=== PATIENT | male | born 1995 | race Caucasian/White ===

== ENCOUNTER → 2021-11-10 | Outpatient (REF) ==
--- NOTE | 2021-11-10 09:21 | Diagnostic Imaging Report ---
INDICATION: Right hand injury. Time of Exam: 9:12 AM The metacarpals are intact. There is a significantly comminuted fracture of the proximal phalanx of the thumb. No definite intra-articular extension is seen. No significant displacement or angulation is seen. Distal phalanges are intact. Carpus is unremarkable. IMPRESSION: Comminuted proximal phalangeal fracture of the thumb. No other abnormality is seen. Dictated by: Dictated on workstation # [id number]
== END ==
LOC: OCC 09:04
PROVIDERS: ATTEND Nurse Practitioner Family
DX: S62.511A Displaced fracture of proximal phalanx of right thumb, initial encounter for closed fracture (principal); X58.XXXA Exposure to other specified factors, initial encounter
CPT/HCPCS: 73130

== ENCOUNTER 2021-11-22 17:18 | Emergency (ER) | payer OTHER ==
[~2021-11-22] VITALS: Ht 68 cm; Wt 70.0 kg
[2021-11-22 17:30] VITALS: BP 136/81
--- NOTE | 2021-11-22 18:06 | ED Upper Extremity ---
General Chief Complaint: Upper Extremity Stated Complaint: PAIN IN RIGHT HAND Nursing Triage Note: pt. reports rt. hand injury 2 weeks ago. dx w/ fx upon x-ray. follow by Occup. [facility]. pt has not followed up w/ ortho. here for increased pain History of Present Illness Date Seen by Provider: Nov 22, 2021 Time Seen by Provider: 17:50 Initial Comments 26-year-old male presents for injury to his right hand. He reports having it crushed in a machine at work approximately 2 weeks ago. He was seen at occupational health at this facility and was told he would be referred to a specialist. He has not received any referral. He has been wearing a splint at all times. He has taken antibiotics and had a tetanus vaccine at the time of the injury for her superficial abrasions to his hand. He has been taking Tylenol for pain but with continued symptoms. He tried to see his primary care provider to be referred to a specialist with no success. Severity: mild Pain/Injury Location: right thumb Method of Injury: other (crush injury at work 2 weeks ago) Allergies and Home Medications Allergies Coded Allergies: No Known Drug Allergies (Unverified , 11/22/21) Patient Home Medication List Home Medication List Reviewed: Yes Tramadol HCl (Tramadol HCl) 50 Mg Tablet, 50 MG PO Q6H PRN for PAIN Prescribed by: LETHA LUIS on 11/22/21 980 Review of Systems Constitutional: no symptoms reported, see HPI Musculoskeletal: see HPI, joint pain (right hand, thumb) All Other Systems Reviewed Negative Unless Noted: Yes Past Fcdrvjy-Qadjvj-Debimd Hx Patient Social History Smoking Status: Current Everyday Smoker Smokeless Tobacco Frequency: Current Everyday User Substance use?: No Alcohol Use?: Yes Alcohol Frequency: Once in a while Family Medical History Reviewed Nursing Family Hx Physical Exam Vital Signs Vital Signs - First Documented 11/22/21 17:30 Temp 35.5 Pulse 99 B/P (MAP) 136/81 (99) Pulse Ox 97 Capillary Refill : Less Than 3 Seconds Height, Weight, BMI Height: '" Weight: lbs. oz. kg; 151.00 BMI Method: General Appearance: WD/WN, no apparent distress Cardiovascular: normal peripheral pulses, regular rate, rhythm Respiratory: chest non-tender, lungs clear Wrist: Yes normal inspection, Yes non-tender, Yes no evidence of injury Hand: Right, abrasions (Healing with no erythema, warmth, or drainage.), bone tenderness, limited ROM (Thumb), soft tissue tenderness Neurologic/Psychiatric: no motor/sensory deficits, alert, normal mood/affect, oriented x 3 Skin: normal color, warm/dry Progress/Results/Core Measures Results/Orders My Orders Orders - LETHA LUIS Finger(S) (11/22/21 18:00) Vital Signs/I&O 11/22/21 17:30 Temp 35.5 Pulse 99 B/P (MAP) 136/81 (99) Pulse Ox 97 Blood Pressure Mean: 99 Diagnostic Imaging Diagonstic Imaging: Xray Plain Films/CT/US/NM/MRI: hand Comments NAME: KIRSTIN OLIVA [facility] REC#: [id number] PT STATUS: REG ER : 1995 PHYSICIAN: LETHA LUIS ADMIT DATE: 11/22/21/ER Draft Date of Exam:11/22/21 FINGER(S) INDICATION: Right hand injury two weeks ago with increasing pain. TIME OF EXAM: 06:17 p.m. COMPARISON: Correlation is made with prior radiograph from 11/10/2021. FINDINGS: Comminuted fracture of the proximal phalanx of the thumb is again noted. This appears very similar to prior study. Fracture alignment is fairly stable, although the more distal dominant fracture fragment does show some slight dorsal angulation. No intra-articular extension is seen. Distal phalanx of the thumb is intact. First metacarpal is intact. IMPRESSION: Comminuted proximal phalangeal fracture of the thumb, as described. Dictated on workstation # [id number] Dict: 11/22/21 1819 Trans: 11/22/21 1824 [id number] Interpreted by: CHRISTIN ESPARZA MD Electronically signed by: Reviewed: Reviewed by Me Departure Impression Primary Impression: Fracture of phalanx of right thumb Qualified Codes: S62.511A - Displaced fracture of proximal phalanx of right thumb, initial encounter for closed fracture Additional Impression: Crush fracture Disposition: 01 HOME, SELF-CARE Condition: Improved Departure-Patient Inst. Decision time for Depature: 18:20 Referrals: ESTELA ROSS APRN (PCP/Family) Primary Care Physician Patient Instructions: Hand Fracture (DC) Add. Discharge Instructions: Call Occupational Health tomorrow, to see about referral. Follow up with your insurance company, for referral to orthopedics. When you know who you are seeing, call [facility] and ask to have your x-rays clouded to that site. Alternate between Tylenol 650 mg and Ibuprofen 600 mg every 4 hours. Ice and elevate right thumb. Return to the Emergency Dept for new, urgent health care needs. All discharge instructions reviewed with patient and/or family. Voiced understanding. Scripts Tramadol HCl (Tramadol HCl) 50 Mg Tablet 50 MG PO Q6H PRN for PAIN, #20 TAB 0 Refills Prov: LETHA LUIS 11/22/21 LETHA LUIS Nov 22, 2021 18:06
--- NOTE | 2021-11-22 18:24 | Diagnostic Imaging Report ---
INDICATION: Right hand injury two weeks ago with increasing pain. TIME OF EXAM: 06:17 p.m. COMPARISON: Correlation is made with prior radiograph from 11/10/2021. FINDINGS: Comminuted fracture of the proximal phalanx of the thumb is again noted. This appears very similar to prior study. Fracture alignment is fairly stable, although the more distal dominant fracture fragment does show some slight dorsal angulation. No intra-articular extension is seen. Distal phalanx of the thumb is intact. First metacarpal is intact. IMPRESSION: Comminuted proximal phalangeal fracture of the thumb, as described. Dictated by: Dictated on workstation # [id number]
[2021-11-22] MEDS ORDERED: TRM50T PO ×2 (18:37→18:55)
== END 2021-11-22 18:41 | disposition home or self-care (01) ==
LOC: EDUNIT# 17:18 → ER 17:27
DX: S62.511A Displaced fracture of proximal phalanx of right thumb, initial encounter for closed fracture (principal); F17.200 Nicotine dependence, unspecified, uncomplicated; W23.1XXA Caught, crushed, jammed, or pinched between stationary objects, initial encounter; Y92.59 Other trade areas as the place of occurrence of the external cause; Y99.0 Civilian activity done for income or pay
CPT/HCPCS: 73140; 99281

== ENCOUNTER 2022-07-07 16:44 | Emergency (ER) | payer SELFPAY ==
[~2022-07-07] VITALS: Ht 172.7 cm; Wt 73.5 kg
[~2022-07-07 16:44] MED LIST: TRM50T PO
[2022-07-07 17:00] VITALS: BP 177/78
[2022-07-07] MEDS ORDERED: ORPHENADRINE 60 MG/2 ML (NORFLEX) AMP (ED ONLY) IM ONE (18:00)
[2022-07-07] MEDS ORDERED: KETOROLAC 60 MG/2 ML VIAL IM ONE (18:00)
[2022-07-07] MEDS ORDERED: diphenhydrAMINE 50 MG/ML INJ (BENADRYL) IM ONE (18:00)
[2022-07-07] MEDS ORDERED: MELO15TA39 PO (18:02)
[2022-07-07] MEDS ORDERED: CYCL10TA25 PO (18:02)
--- NOTE | 2022-07-07 18:02 | ED Back Pain ---
General Chief Complaint: Back Problems Stated Complaint: BACK PAIN Nursing Triage Note: PT AMB TO FT 1 W C/O MID/LOWER BACK PAIN THAT RADIATES TO BLE X2-3 DAYS. PT REPORTS HE HAS MILD DDD, WENT TO ROLL OFF COUCH A FEW DAYS AGO AND BELIEVES THIS IS WHEN PAIN STARTED. PT A&OX4. Source of Information: Patient History of Present Illness Date Seen by Provider: Jul 07, 2022 Time Seen by Provider: 17:54 Initial Comments PT ARRIVES VIA POV FROM HOME C/O LOW BACK PAIN, RADIATING DOWN THE BACK OF LEFT LEG X 3 DAYS NO INJURY--STATES HE ROLLED OVER IN BED AND BEGAN HAVING PAIN PT IS UNEMPLOYED. DENIES ANY HEAVY LIFTING OR UNUSUAL ACTIVITY, OR TRAUMA HAS OCCASIONAL TINGLING DOWN THE BACK OF HIS LEFT LEG NO URINARY SYMPTOMS NO NAUSEA/VOMITING NO RELIEF WITH IBUPROFEN X 1 DOSE, JUST PRIOR TO ARRIVAL PT STATES HE HAS HAD "CHRONIC BACK PAIN" AND HAS "DEGENERATIVE DISC DISEASE" HE HAS NOT SOUGHT CARE UNTIL TODAY FOR THIS PROBLEM SYMPTOMS NO DIFFERENT TODAY. Other Comments PCP: [facility] Allergies and Home Medications Allergies Coded Allergies: No Known Drug Allergies (Unverified , 11/22/21) Patient Home Medication List Cyclobenzaprine HCl (Cyclobenzaprine HCl) 10 Mg Tablet, 10 MG PO Q8H PRN for SPASMS Prescribed by: ZEE WAGNER on 07/07/221801 Meloxicam (Meloxicam) 15 Mg Tablet, 15 MG PO DAILY Prescribed by: ZEE WAGNER on 07/07/221801 Tramadol HCl (Tramadol HCl) 50 Mg Tablet, 50 MG PO Q6H PRN for PAIN Prescribed by: LETHA LUIS on 11/22/21 1855 Review of Systems Constitutional: no symptoms reported Respiratory: no symptoms reported Cardiovascular: no symptoms reported Gastrointestinal: no symptoms reported Genitourinary: no symptoms reported Musculoskeletal: see HPI Skin: no symptoms reported Psychiatric/Neurological: See HPI Past Ixnnhvb-Nptahg-Xpdmle Hx Patient Social History Tobacco Use?: Yes Tobacco type used: Cigarettes Smoking Status: Current Everyday Smoker Use of E-Cig and/or Vaping dev: No Substance use?: No Alcohol Use?: Yes Alcohol Frequency: Once in a while Immunizations Up To Date Influenza Vaccine Up-to-Date: No; Not Current First/Initial COVID19 Vaccinat: NONE Second COVID19 Vaccination Tyshawn: NONE Third COVID19 Vaccination Date: NONE COVID19 Vaccine Residency Program Coordinator: NONE Past Medical History Surgery/Hospitalization HX: MILD DDD Surgeries: Yes Orthopedic, Testicular Respiratory: No Cardiac: No Neurological: Yes (SKULL FRACTURE) Concussion Reproductive Disorders: Yes (SURGERY FOR UNDESCENDED TESTICLES) Genitourinary: No Gastrointestinal: No Musculoskeletal: Yes (RIGHT KNEE SURGERY) Degenerate Disk Disease, Chronic Back Pain HEENT: No Cancer: No Psychosocial: No Integumentary: No Blood Disorders: No Family Medical History SOCIAL HISTORY: -SMOKES 1 PPD -ETOH--OCCASIONAL USE -DRUGS--DENIES USE PAST SURGICAL HISTORY: -RIGHT KNEE SURGERY -SURGERY FOR BILATERAL UNDESCENDED TESTICLES Physical Exam Vital Signs Vital Signs - First Documented 07/07/22 17:00 Temp 36.8 Pulse 99 Resp 20 B/P (MAP) 177/78 (111) Pulse Ox 97 O2 Delivery Room Air Capillary Refill : Less Than 3 Seconds Height, Weight, BMI Height: '" Weight: lbs. oz. kg; 24.00 BMI Method: General Appearance: WD/WN, Anxious, Other (DRAMATIC. ) Neck: Normal Inspection Cardiovascular: Regular Rate, Rhythm Respiratory: Normal Breath Sounds Peripheral Pulses: 2+ Dorsalis Pedis (R), 2+ Left Dors-Pedis (L) Gastrointestinal: Non Tender Back: Other (DIFFUSE LOWER BACK PAIN, BILATERAL S.I. JOINT TENDERNESS. + STRAIGHT LEG RAISING ON LEFT. DTR'S +2/4 BILATERALLY. 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 Norm as Tested Skin: Normal Color, Warm/Dry; No Rash Progress/Results/Core Measures Results/Orders My Orders Orders - ZEE WAGNER DO Ketorolac Injection (Toradol Injection) (07/07/22 18:00) Orphenadrine Inj (Ed Only) (Norflex Inje (07/07/22 18:00) Diphenhydramine Injection (Benadryl Inje (07/07/22 18:00) Vital Signs/I&O 07/07/22 17:00 Temp 36.8 Pulse 99 Resp 20 B/P (MAP) 177/78 (111) Pulse Ox 97 O2 Delivery Room Air Blood Pressure Mean: 111 Progress Progress Note : Progress Note GIVEN: TORADOL NORFLEX BENADRYL DISCUSSED ANTICIPATED COURSE, MEDICATIONS, SYMPTOMATIC TREATMENT, NEED FOR FOLLOW UP AND RETURN PRECAUTIONS. REVIEWED OLD RECORDS, PT'S ONLY ER VISIT WAS 11/2021 FOR FINGER INJURY Departure Impression Primary Impression: Low back pain with left-sided sciatica Disposition: HOME, SELF-CARE Condition: Stable Departure-Patient Inst. Decision time for Depature: 18:01 Referrals: ESTELA ROSS APRN (PCP/Family) Primary Care Physician Patient Instructions: Low Back Pain ED, Sciatica ED Add. Discharge Instructions: ALTERNATE ICE AND HEAT TO SORE AREA AT 20 MINUTE INTERVALS FOLLOW UP WITH [facility] IN 2-3 DAYS FOR FURTHER CARE--CALL IN THE MORNING TO SCHEDULE AN APPOINTMENT All discharge instructions reviewed with patient and/or family. Voiced understanding. Scripts Cyclobenzaprine HCl (Cyclobenzaprine HCl) 10 Mg Tablet 10 MG PO Q8H PRN for SPASMS, #15 TAB 0 Refills Prov: ZEE WAGNER DO 07/07/22 Meloxicam (Meloxicam) 15 Mg Tablet 15 MG PO DAILY, #10 TAB Prov: ZEE WAGNER DO 07/07/22 ZEE WAGNER DO Jul 07, 2022 18:02
== END 2022-07-07 18:30 | disposition home or self-care (01) ==
LOC: EDUNIT# 16:44 → ER 16:46
DX: M54.42 Lumbago with sciatica, left side (principal); F17.210 Nicotine dependence, cigarettes, uncomplicated; Z28.310 Unvaccinated for COVID-19
CPT/HCPCS: 99284

== ENCOUNTER 2023-03-27 20:09 | Emergency (ER) | payer SELFPAY ==
[~2023-03-27] VITALS: Ht 170.1 cm; Wt 70.3 kg
[~2023-03-27 20:09] MED LIST changes: +CYCL10TA25 PO; +MELO15TA39 PO
--- NOTE | 2023-03-27 20:32 | ED General ---
General Chief Complaint: General Problems/Pain Stated Complaint: MIGRANES, COLD/HOT FLASHES, VOMITING Nursing Triage Note: PT AMB TO RM 10 WITH CC OF HOT/COLD FLASHES, VOMITING, LH, AND DIARRHEA SINCE 03/23. PT UNK FEVER. PT STATES "I MIGHT HAVE COVID OR SOMETHING." Source of Information: Patient Exam Limitations: No Limitations History of Present Illness Date Seen by Provider: Mar 27, 2023 Time Seen by Provider: 20:29 Initial Comments Patient is a 27-year-old male with a history of smoking presents ED for flulike symptoms. Symptoms started this past Sunday. Reports hot and cold flashes, vomiting twice, diarrhea loose stool mild cough with some chest discomfort with a cough. Patient states he feels weak and fatigue with generalized body pains. Has been taking ibuprofen with some improvement. States he missed work the past couple days secondary to his symptoms. Denies being exposed to COVID or anybody else that has been sick. Denies taking any other medication. Denies of any known medical problems. Reports some intermittent wheezing but does smoke. Patient denies of any current chest pain, abdominal pain. Does not report head pressure. Denies any visual changes, unilateral muscle weakness or sensory changes, neck pain, known fever. Denies of any known medical problems. Denies rash, sore throat or ear pain Allergies and Home Medications Allergies Coded Allergies: No Known Drug Allergies (Unverified , 11/22/21) Patient Home Medication List Home Medication List Reviewed: Yes Albuterol Sulfate (Ventolin Hfa) 1 Puff Puff, 2 PUFF INH Q4H Prescribed by: SHADY BRIONES on 03/27/232127 Cyclobenzaprine HCl (Cyclobenzaprine HCl) 10 Mg Tablet, 10 MG PO Q8H PRN for SPASMS Prescribed by: ZEE WAGNER on 07/07/221801 Meloxicam (Meloxicam) 15 Mg Tablet, 15 MG PO DAILY Prescribed by: ZEE WAGNER on 07/07/221801 Tramadol HCl (Tramadol HCl) 50 Mg Tablet, 50 MG PO Q6H PRN for PAIN Prescribed by: LETHA LUIS on 11/22/21 185 Review of Systems Review of Systems Constitutional: chills; No fever; malaise, weakness EENTM: No ear pain, No blurred vision, No double vision Respiratory: cough; No dyspnea on exertion Cardiovascular: No chest pain Gastrointestinal: No abdominal pain; diarrhea, nausea, vomiting Genitourinary: No decreased output, No discharge Musculoskeletal: No back pain, No joint pain Skin: No change in color, No change in hair/nails All Other Systems Reviewed Negative Unless Noted: Yes Past Mxqygzy-Kyhlyg-Aupqbh Hx Patient Social History Tobacco Use?: Yes Tobacco type used: Cigarettes Smoking Status: Current Everyday Smoker Substance use?: Yes Substance type: Marijuana Substance frequency: Daily Alcohol Use?: No Immunizations Up To Date First/Initial COVID19 Vaccinat: NONE Second COVID19 Vaccination Tyshawn: NONE Third COVID19 Vaccination Date: NONE Past Medical History Surgery/Hospitalization HX: MILD DDD Surgeries: Yes Orthopedic, Testicular Respiratory: No Cardiac: No Neurological: Yes (SKULL FRACTURE) Concussion Reproductive Disorders: Yes (SURGERY FOR UNDESCENDED TESTICLES) Genitourinary: No Gastrointestinal: No Musculoskeletal: Yes (RIGHT KNEE SURGERY) Degenerate Disk Disease, Chronic Back Pain HEENT: No Cancer: No Psychosocial: No Integumentary: No Blood Disorders: No Family Medical History SOCIAL HISTORY: -SMOKES 1 PPD -ETOH--OCCASIONAL USE -DRUGS--DENIES USE PAST SURGICAL HISTORY: -RIGHT KNEE SURGERY -SURGERY FOR BILATERAL UNDESCENDED TESTICLES Physical Exam Vital Signs Vital Signs - First Documented 03/27/23 20:18 Temp 37.1 Pulse 101 Resp 16 B/P (MAP) 155/97 (116) Pulse Ox 95 O2 Delivery Room Air Capillary Refill : Less Than 3 Seconds Height, Weight, BMI Height: '" Weight: lbs. oz. kg; 24.00 BMI Method: General Appearance: No Apparent Distress, WD/WN Eyes: Bilateral Eye Normal Inspection, Bilateral Eye PERRL, Bilateral Eye EOMI HEENT: PERRL/EOMI, TMs Normal, Normal ENT Inspection, Pharynx Normal Neck: Full Range of Motion, Normal Inspection, Non Tender, Supple Respiratory: Chest Non Tender, Lungs Clear, Normal Breath Sounds, No Accessory Muscle Use, No Respiratory Distress Cardiovascular: Regular Rate, Rhythm, No Edema, No Gallop, No JVD, No Murmur Gastrointestinal: Normal Bowel Sounds, No Organomegaly, No Pulsatile Mass, Non Tender Extremity: Normal Capillary Refill, Normal Inspection, Normal Range of Motion, Non Tender, No Calf Tenderness Neurologic/Psychiatric: Alert, Oriented x3, No Motor/Sensory Deficits, Normal 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, 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 Norm as Tested Skin: Normal Color, Warm/Dry Progress/Results/Core Measures Suspected Sepsis SIRS Temperature: Pulse: 101 Respiratory Rate: 16 Blood Pressure 155 /97 Mean: 116 Results/Orders Lab Results Laboratory Tests Test 03/27/23 20:36 Range/Units Influenza Type A (RT-PCR) Not Detected Not Detecte Influenza Type B (RT-PCR) Not Detected Not Detecte SARS-CoV-2 RNA (RT-PCR) Not Detected Not Detecte My Orders Orders - JAYY MENDEZ Covid 19 Inhouse Test (03/27/23 20:23) Influenza A And B By Pcr (03/27/23 20:23) Chest 1 View, Ap/Pa Only (03/27/23 20:29) Vital Signs/I&O 03/27/23 03/27/23 20:18 21:33 Temp 37.1 Pulse 101 101 Resp 16 16 B/P (MAP) 155/97 (116) 131/82 Pulse Ox 95 95 O2 Delivery Room Air Room Air Capillary Refill : Less Than 3 Seconds Blood Pressure Mean: 116 Departure Communication (PCP) Differential diagnosis viral syndrome, pneumonia. Patient appears in no acute respiratory distress. Vital signs stable. Flulike symptoms since Sunday. COVID influenza was ordered. Did have some subtle wheezing. History of smoking. Denies feeling any short of breath or current chest pain. Tolerating p.o. fluids. X-ray was obtained which did not note any acute abnormality. COVID influenza were negative. Suspect that this is more viral in nature. Patient was requesting a work note which was provided. At this time recommend alternating Tylenol ibuprofen. Bwxf-hky-hvrikue conservative measures to help with symptoms relieve. If any worsening symptoms such as chest pain or shortness of breath return back to ED. Vital signs are stable. Clinically does not appear to be cardiac. Impression Primary Impression: Viral syndrome Disposition: 01 HOME, SELF-CARE Condition: Stable Departure-Patient Inst. Decision time for Depature: 21:27 Referrals: SETELA ROSS APRN (PCP/Family) Primary Care Physician Patient Instructions: Viral Syndrome (DC) Add. Discharge Instructions: Recommend alternating Tylenol ibuprofen. Recommend hydration. Provided work note for a few days. Any worsening symptoms return back to ED All discharge instructions reviewed with patient and/or family. Voiced understanding. Scripts Albuterol Sulfate (VENTOLIN HFA) 1 Puff Puff 2 PUFF INH Q4H, #1 EA 1 PUFF = 90 MCG Prov: JAYY MENDEZ 03/27/23 Work/School Note: Work Release Form Date Seen in the Emergency Department: Mar 27, 2023 Return to Work: Mar 30, 2023 JAYY MENDEZ Mar 27, 2023 20:32
--- NOTE | 2023-03-27 21:27 | Diagnostic Imaging Report ---
CLINICAL INDICATION: Patient with hot and cold flashes, vomiting, and diarrhea since 03/23. EXAM: Portable chest x-ray upright view. COMPARISON: None. FINDINGS: Lungs/pleura: Lungs are clear. There is no pneumothorax. There is no pleural effusion. Mediastinum: Unremarkable. Pulmonary vasculature: Unremarkable. Heart: Unremarkable. Bones/extrathoracic soft tissue: Unremarkable. IMPRESSION: There is no radiographic evidence of acute cardiopulmonary process. Dictated by: Dictated on workstation # [id number]
[2023-03-27] MEDS ORDERED: RT-ALBUINH INH (21:28)
[2023-03-27 21:33] VITALS: BP 131/82
== END 2023-03-27 21:33 | disposition home or self-care (01) ==
LOC: EDUNIT# 20:09 → ER 20:12
DX: B34.9 Viral infection, unspecified (principal); R05.9 Cough, unspecified; R50.9 Fever, unspecified; R19.7 Diarrhea, unspecified; R53.83 Other fatigue; F17.210 Nicotine dependence, cigarettes, uncomplicated; Z20.822 Contact with and (suspected) exposure to COVID-19; Z28.310 Unvaccinated for COVID-19
CPT/HCPCS: 71045; 87636